=== PATIENT | male | born 1960 | race Caucasian/White ===

== ENCOUNTER 2022-04-14 06:49 | Observation (INO) ==
--- NOTE | 2022-04-14 08:29 | History & Physical Bridge Note ---
Date of Service April 14, 2022 History & Physical Bridge Note I have examined the patient, reviewed the History & Physical and in the interval since the performance of the History & Physical I have noted the following changes of clinical significance: no changes noted
--- NOTE | 2022-04-14 08:31 | Pre Anesthesia Assessment ---
Date of Service April 14, 2022 Pre Sedation Assessment Vital Signs Temp Pulse Resp BP Pulse Ox O2 Del Method 04/14/22 07:18 36.7 C 97 H 16 120/83 98 Room Air Pre-Sedation Airway Assessment Smoking Status: Never smoker Notes The planned sedation has been discussed with the patient. Informed Consent was obtained. I have identified the patient, determined the appropriateness of sedation and have assessed the patient immediately prior to the procedure. All medicine(s) and interventions are by my order.
[2022-04-14] MEDS ORDERED: MIDAZOLAM HCL 1 MG/ML 2ML VIAL ONE (08:54)
[2022-04-14] MEDS ORDERED: fentaNYL citrate 100 MCG/2 ML VIAL ONE (08:54)
--- NOTE | 2022-04-14 09:00 | Post Anesthesia Assessment ---
Date of Service April 14, 2022 Post Sedation Assessment Vital Signs Temp Pulse Resp BP Pulse Ox O2 Del Method 04/14/22 07:18 36.7 C 97 H 16 120/83 98 Room Air Discharge Sedation Level of Care: Fast Track Phase II Post Sedation Plan On clinical assessment, the patient appears to have tolerated the sedation without complications. Patient is recovering as anticipated. Patient will continue to be monitored by nursing and may be discharged when sedation discharge criteria are met per below protocol. Upon Completions of procedure up to 15 minutes continue every 5 minute vital signs and the P.A.R. score; then discharge to a Phase I or Fast Track to Phase II per the following guidelines: * Discharge Patient to appropriate Phase II area if PAR is 8 or greater or return to pre- procedure baseline. The post - procedure orders will be as directed. * If PAR score is less than 8 or not return to pre-procedure baseline then patient will follow Phase I monitoring till PAR is reached for Phase II. The Phase I may be done in procedure room or may call to secure a Phase I area. * If naloxone or flumazenil are used for reversal, hold in Phase I for contin ued monitoring from when last reversal dose was given for a minimum of 60 minutes or longer pending the nurse and/or physician discretion of patient condition before discharge to Phase II. Please call the Sedation Physician to re-evaluate and complete post-note for discharge to Phase II area. Do NOT discharge from procedure sedation or Phase 1 until post- sedation evaluation note is complete by procedure /sedation MD Sedation Discharge Instructions to be given to the patient at discharge to home.
--- NOTE | 2022-04-14 09:03 | Operative Report ---
Post Operative Report Pre & Post Diagnosis Operation Date: 04/14/22 07:45 <No data on this case meets the specified criteria> I identified the patient and participated in the time-out.: Yes Procedure Operation Date: 04/14/22 07:45 Actual Procedures p Cardioversion - Nicholas Kothari DO Surgeon Nicholas Kothari DO Taping Machine Operator Brennon BOOKER Estimated Blood Loss 0 Findings Consistent with Post-Op Diagnosis see above Specimens none Description of Procedure Informed consent obtained. Patient prepped. Adequate moderate sedation achieved with a total of Versed 3 mg and fentanyl 75 mcg 360 J of direct-current energy was delivered with successful cardioversion to normal sinus rhythm. Patient tolerated well. Start time: 0840 Stop time: 0847 Plan Recover per protocol. Discharge to home on previous medication regimen I attest to the content of the Intraoperative Record and any orders documented therein. Any exceptions are noted below.
--- NOTE | 2022-04-14 09:06 | Discharge Summary ---
Date of Service April 14, 2022 Admission HPI Per Admitting Provider Patient presented for outpatient elective cardioversion Admission Exam Per Admitting Provider General: Awake, alert and oriented x 3. No acute distress. HEENT: Normocephalic, atraumatic. Pupils equal, round and reactive to light and accommodation. Extraocular muscles are intact. Anicteric sclera. Moist mucous membranes. Neck: No JVD. No bruit. Cardiovascular: irregularly irregular, unable to appreciate murmur, rub or gallop. Pulmonary: Clear to auscultation bilaterally. No rales, rhonchi, or wheezing. Abdomen: Bowel sounds x 4, soft. No rebound, guarding or tenderness. No organomegaly. Extremities: No clubbing, cyanosis or edema. +2 pedal pulses bilaterally. Skin: Warm and dry. Principal Diagnosis Atrial fibrillation with rapid ventricular response Discharge Exam Physical Exam: General: Awake, alert and oriented x 3. No acute distress. HEENT: Normocephalic, atraumatic. Pupils equal, round and reactive to light and accommodation. Extraocular muscles are intact. Anicteric sclera. Moist mucous membranes. Neck: No JVD. No bruit. Cardiovascular: Regular. No S-4. Normal S-1 and S-2. No S-3. No murmurs, rubs or gallops. Pulmonary: Clear to auscultation bilaterally. No rales, rhonchi, or wheezing. Abdomen: Bowel sounds x 4, soft. No rebound, guarding or tenderness. No organomegaly. Extremities: No clubbing, cyanosis or edema. +2 pedal pulses bilaterally. Skin: Warm and dry. Discharge Data Allergies Allergy/AdvReac Type Severity Reaction Status Date / Time No Known Allergies Allergy Verified 12/28/21 19:35 Procedures Performed Operation Date: 04/14/22 07:45 Actual Procedures p Cardioversion - Nicholas Kothari, Discharge Plan Discharge Items Reason For Visit: Atrial Flutter, Paroxysmal Atrial Fibrillation Follow-Up/Referrals: Villa Stafford [Primary Care Provider] - Prescriptions: No Action multivitamin [Men's Multi-Vitamin] Tablet 1 tab PO DAILY fluticasone propion-salmeterol [Advair Diskus] 250-50 mcg/dose blister with device 1 inh INHALATION DIRECTED Rx Instructions: ORDERED 12/28/21 HAS NOT STARTED YET ascorbic acid (vitamin C) [Vitamin C] 1,000 mg Tablet 1 g PO DAILY cetirizine [Zyrtec] 10 mg Tablet 10 mg PO DAILY ibuprofen 800 mg tablet 800 mg PO TID PRN (Reason: Pain) amlodipine 10 mg tablet 10 mg PO QAM omeprazole 20 mg capsule,delayed release(DR/EC) 20 mg PO BID albuterol sulfate 90 mcg/actuation HFA aerosol inhaler 2 puff INHALATION Q6H PRN (Reason: Shortness Of Breath) fluticasone propionate 50 mcg/actuation spray,suspension 2 spray INTRANASAL DAILY pseudoephedrine HCl [Sudafed] 60 mg Tablet 60 mg PO DAILY Mucinex 1,200 mg Tablet Extended Release 12hr 1,200 mg PO DAILY nebivolol 10 mg tablet 10 mg PO HS calcium lactate 100 mg calcium Tablet 100 mg PO DAILY Magnesium, Zinc, Calcium Tab 1 tab PO DAILY Eliquis 5 mg tablet 5 mg PO BID Qty: 60 0RF metoprolol succinate 25 mg tablet extended release 24 hr 25 mg PO BID Qty: 60 0RF Admission Data Attending Provider: Nicholas Kothari Primary Care Provider: Villa Stafford
--- NOTE | 2022-04-14 09:37 | Cardiology Consultation ---
Date of Consultation April 14, 2022 Assessment & Plan (1) Atrial fibrillation with rapid ventricular response: (2) Hypertension: Plan The patient will be admitted for sotalol loading and reattempt at DC cardioversion. Continuous telemetry monitoring. Basic blood work will be drawn at this time. Daily EKGs. N.p.o. after midnight for possible cardioversion in the a.m. Given patient's body habitus she also undergo nocturnal pulse ox monitoring this evening. History of Present Illness Reason for Consultation: afib sotalol load Requesting Physician: TARA Attending Physician: Nicholas Kothari, History of Present Illness Mr. Bentley is a very pleasant 61-year-old gentleman who is been following with us as an outpatient for paroxysmal atrial fibrillation with rapid ventricular response. He has been chronically anticoagulated with Xarelto and presented for outpatient cardioversion on 04/14/2022. Underwent cardioversion which was initially successful, unfortunately, approximately 5 minutes after the cardioversion he lapsed back into atrial fibrillation. I discussed the pathophysiology and treatment options with him and his and they are in agreement that they would prefer to stay for sotalol loading and repeat cardioversion in an attempt to maintain sinus rhythm. I will ask our hospitalist team to admit him. He will need continuous telemetry monitoring. Daily EKGs to monitor QTC. Metoprolol be discontinued and he will be started on sotalol 80 mg p.o. twice daily instead. Allergies Allergy/AdvReac Type Severity Reaction Status Date / Time No Known Allergies Allergy Verified 12/28/21 19:35 Home Medications Medication Instructions Recorded Confirmed Type Magnesium, Zinc, Calcium Tab 1 tab PO DAILY 12/28/21 12/28/21 History albuterol sulfate 90 mcg/actuation 2 puff inhalation Q6H PRN 12/28/21 12/28/21 History aerosol inhaler Shortness Of Breath amlodipine 10 mg tablet 10 mg PO QAM 12/28/21 12/28/21 History apixaban 5 mg tablet (Eliquis) 5 mg PO BID #60 tabs 12/28/21 Rx ascorbic acid (vitamin C) 1,000 mg 1 g PO DAILY 12/28/21 12/28/21 History tablet (Vitamin C) calcium lactate 100 mg calcium 100 mg PO DAILY 12/28/21 12/28/21 History tablet cetirizine 10 mg tablet (Zyrtec) 10 mg PO DAILY 12/28/21 12/28/21 History fluticasone 250 mcg-salmeterol 50 1 inh inhalation DIRECTED 12/28/21 12/28/21 History mcg/dose blistr powdr for inhalation (Advair Diskus) fluticasone propionate 50 2 spray intranasal DAILY 12/28/21 12/28/21 History mcg/actuation nasal spray,suspension guaifenesin 1,200 mg tablet, 1,200 mg PO DAILY 12/28/21 12/28/21 History extended release 12 hr (Mucinex) ibuprofen 800 mg tablet 800 mg PO TID PRN Pain 12/28/21 12/28/21 History metoprolol succinate 25 mg 25 mg PO BID #60 tabs 12/28/21 Rx tablet,extended release 24 hr multivitamin 1 tab PO DAILY 12/28/21 12/28/21 History nebivolol 10 mg tablet 10 mg PO HS 12/28/21 12/28/21 History omeprazole 20 mg capsule,delayed 20 mg PO BID 12/28/21 12/28/21 History release pseudoephedrine HCl 60 mg tablet 60 mg PO DAILY 12/28/21 12/28/21 History Patient History Social History Smoking Status: Never smoker Hx Alcohol Use: No Hx Substance Use: No Preferred Language: [place]ese Communication Ability: Effective Linoleum Tile Floor Layer Required: No Beliefs That Will Affect Care: None Current Living Situation: Spouse Other Information That Helps Us Care for You: No Feels Safe at Home: Yes Safety Concerns: Feels Safe At This Time Assistive Devices: None Review of Systems Review of Systems: All systems reviewed & are unremarkable except as noted in HPI & below Physical Exam Physical Exam: General: Awake, alert and oriented x 3. No acute distress. HEENT: Normocephalic, atraumatic. Pupils equal, round and reactive to light and accommodation. Extraocular muscles are intact. Anicteric sclera. Moist mucous membranes. Neck: No JVD. No bruit. Cardiovascular: irregularly irregular, unable to appreciate murmur, rub or gallop. Pulmonary: Clear to auscultation bilaterally. No rales, rhonchi, or wheezing. Abdomen: Bowel sounds x 4, soft. No rebound, guarding or tenderness. No organomegaly. Extremities: No clubbing, cyanosis or edema. +2 pedal pulses bilaterally. Skin: Warm and dry. Results & Data ([facility]) Vital Signs (Past 12 Hours) Vital Signs Temp Pulse Resp BP Pulse Ox O2 Del Method 04/14/22 09:30 94 H 16 125/93 98 Room Air 04/14/22 09:15 87 16 110/73 98 Room Air 04/14/22 09:00 85 16 114/76 98 Room Air 04/14/22 08:48 90 16 132/87 98 Room Air 04/14/22 07:18 36.7 C 97 H 16 120/83 98 Room Air
--- NOTE | 2022-04-14 09:41 | Electrocardiogram Report ---
Test Reason : Blood Pressure : / mmHG Vent. Rate : 080 BPM Atrial Rate : 000 BPM P-R Int : 000 ms QRS Dur : 100 ms QT Int : 394 ms P-R-T Axes : 000 179 188 degrees QTc Int : 454 ms Atrial fibrillation Right axis deviation Abnormal ECG When compared with ECG of 28-DEC-2021 18:29, No significant change Confirmed by Justin Boss ([id number]) on 04/14/2022 9:40:57 AM Referred By: Itzel Duff Confirmed By:Justin Boss
--- NOTE | 2022-04-14 09:49 | History & Physical Report ---
Date of Service April 14, 2022 Assessment & Plan (1) Atrial fibrillation with rapid ventricular response: Plan: This is a 61yo M with a PMH of recently diagnosed paroxysmal A Fib on Xarelto, HTN who underwent unsuccessful cardioversion for atrial fibrillation and is b eing admitted for Sotalol loading. Underwent cardioversion which was initially successful but approximately 5 minutes after the cardioversion he lapsed back into atrial fibrillation Admitting for Sotalol loading and repeat cardioversion Sotalol 80mg BID per Dr. Kothari Discontinue Toprol Daily ECGs NPO @ MN for possible cardioversion in AM Nocturnal pulse ox monitoring overnight given body habitus Continue Xarelto for anticoagulation (2) Hypertension: Plan: Normotensive. Continue amlodipine (3) Gastroesophageal reflux disease: Plan: Continue PPI DVT Ppx: Xarelto Code status: FULL PCP: Rivera Dispo: Admitting to PCU Patient seen in collaboration with Dr. Gamboa. Please see addendum. History of Present Illness Chief Complaint: a fib Primary Care Provider: Villa Stafford This is a 61yo M with a PMH of recently diagnosed paroxysmal A Fib on Xarelto, HTN who presented for DC cardioversion with Dr. Kothari. Underwent cardioversion which was initially successful but approximately 5 minutes after the cardioversion he lapsed back into atrial fibrillation. Patient is being admitted for sotalol loading and repeat cardioversion. Echo from February 2022 with preserved EF 50-54%, no wall motion abnormalities. Patient is feeling well when examined in cardiac suite. Denies any lightheadedness, chest pain or palpitations. No fever, chills, congestion,shortness of breath, nausea, vomiting, abdominal pain, dysuria, diarrhea or constipation. Taking all medications as prescribed. Last took Xarelto last evening with dinner. Follows with Dr. Stafford for primary care. Allergies Allergy/AdvReac Type Severity Reaction Status Date / Time No Known Allergies Allergy Verified 12/28/21 19:35 Home Medications Medication Instructions Recorded Confirmed Type Magnesium, Zinc, Calcium Tab 1 tab PO DAILY 12/28/21 04/14/22 History albuterol sulfate 90 mcg/actuation 2 puff inhalation Q6H PRN 12/28/21 04/14/22 History aerosol inhaler Shortness Of Breath amlodipine 10 mg tablet 10 mg PO QAM 12/28/21 04/14/22 History calcium lactate 100 mg calcium 100 mg PO DAILY 12/28/21 04/14/22 History tablet cetirizine 10 mg tablet (Zyrtec) 10 mg PO DAILY 12/28/21 04/14/22 History fluticasone 250 mcg-salmeterol 50 1 inh inhalation DIRECTED 12/28/21 04/14/22 History mcg/dose blistr powdr for inhalation (Advair Diskus) fluticasone propionate 50 2 spray intranasal DAILY 12/28/21 04/14/22 History mcg/actuation nasal spray,suspension guaifenesin 1,200 mg tablet, 1,200 mg PO DAILY 12/28/21 04/14/22 History extended release 12 hr (Mucinex) ibuprofen 800 mg tablet 800 mg PO TID PRN Pain 12/28/21 04/14/22 History multivitamin 1 tab PO DAILY 12/28/21 04/14/22 History omeprazole 20 mg capsule,delayed 20 mg PO BID 12/28/21 04/14/22 History release ascorbic acid (vitamin C) 100 mg 100 mg PO DAILY 04/14/22 04/14/22 History tablet metoprolol succinate 100 mg 100 mg PO DAILY 04/14/22 04/14/22 History tablet,extended release 24 hr rivaroxaban 20 mg tablet (Xarelto) 20 mg PO DAILY@1800 04/14/22 04/14/22 History Past Med/Surg History Medical History (Updated 04/14/22 @ 11:24 by Rosana Sanchez PA-C) Gastroesophageal reflux disease Hyperlipidemia Lyme disease Migraine headache Obesity Thyroid nodule Surgical History H/O hand surgery Family History Other Hypertension Social History Smoking Status: Former smoker Hx Alcohol Use: No Hx Substance Use: No Preferred Language: [place] Communication Ability: Effective Compensator Worker Required: No Beliefs That Will Affect Care: None Current Living Situation: Spouse Other Information That Helps Us Care for You: No Feels Safe at Home: Yes Safety Concerns: Feels Safe At This Time Assistive Devices: None Review of Systems Review of Systems: At least ten systems reviewed and negative except as noted in the HPI. Physical Exam Physical Exam: General Appearance: WD/WN, vitals as above, NAD, sitting up in bed, pleasant, conversing easily Head: normocephalic, atraumatic Eyes: normal inspection, PERRL, conjunctivae normal, anicteric sclerae ENT: external ear and nose normal, oropharynx normal Neck: normal visual inspection, trachea midline, no thyromegaly Respiratory: normal respiratory effort, lungs clear to auscultation, no wheeze, rales, rhonchi. No accessory muscle use Cardiovascular: irregular rate & rhythm, no murmur, normal peripheral pulses, no BLE edema. Vessels: no JVD Chest: normal inspection of chest Abdomen/GI: normal bowel sounds, soft, nontender, no hepatosplenomegaly Extremities/Musculoskeletal: no cyanosis or clubbing, extremities motor strength 5/5 Neurologic: PERRL, EOMI, accommodation nl, no face palsy, no dysarthria, CN's II-XI intact bilaterally and moves all extremities Psychiatric: A+Ox3, euthymic affect Skin: no rashes, normal color, warm/dry Results & Data Results & Data ([facility]) Vital Signs (Past 12 Hours) Vital Signs Temp Pulse Resp BP Pulse Ox O2 Del Method 04/14/22 09:45 92 H 16 127/93 98 Room Air 04/14/22 09:30 94 H 16 125/93 98 Room Air 04/14/22 09:15 87 16 110/73 98 Room Air 04/14/22 09:00 85 16 114/76 98 Room Air 04/14/22 08:48 90 16 132/87 98 Room Air 04/14/22 07:18 36.7 C 97 H 16 120/83 98 Room Air Code Status & VTE Plan VTE Prophylaxis Plan VTE Prophylaxis will be ordered: Yes Supervising Physician Co-Signing Physician Notes Patient was seen and examined independently at bedside. Chart reviewed. Case discussed with Rosana Sanchez PA-C and agree with the documentation above. In summary, this is a 61 year old male with Afib with RVR who underwent unsuccessful cardioversion today and is being admitted for sotalol loading with plan for repeat CV tomorrow. States he was found to have Afib on 12/28/21 and has been tried on medications but did not covert to NSR. Has been on xarelto since. Currently denies any symptoms from his Afib. This is his first cardioversion but unsuccessful. Per cardio, toprol discontinued as started on sotalol, monitor on tele, repeat CV in am. Further management per cardio. On exam, afebrile, hemodynamically stable, sitting in chair, eating lunch, AAO, chest clear, irregularly irregular HR, abd benign, no edema. at bedside. Rest as per the note above.
[2022-04-14] MEDS ORDERED: guaiFENesin 600 MG TABCR PO PRN (10:17)
[2022-04-14] MEDS ORDERED: IBUPROFEN 800 MG TAB PO PRN (10:17)
[2022-04-14] MEDS ORDERED: POLYETHYLENE (MIRALAX) 17 GM PACK PO PRN (11:46)
[2022-04-14] MEDS ORDERED: ACETAMINOPHEN 325 MG TAB PO PRN (11:46)
[2022-04-14] MEDS ORDERED: ALBUTEROL HFA 8 GM INHALER INH PRN (11:59)
[2022-04-14] MEDS: SOTALOL HCL 80 MG TAB PO SCH ×2 (13:11→20:01)
[2022-04-14] MEDS: RIVAROXABAN 20 MG TAB PO SCH (17:48)
[2022-04-14] MEDS: PANTOprazole 40 MG TAB PO SCH (20:01)
[2022-04-15 07:55] LABS: Hematocrit (blood only) 48.6 % (40.1-51.0); Hemoglobin 16.9 g/dl (14.0-18.0); Mean Corpuscular Hgb Conc 34.8 g/dL (32.0-36.0); Mean Platelet Volume 11.5 fL (9.4-12.4); Platelet Count 189 K/uL (130-400); RDW Coefficient of Variation 12.1 % (11.5-14.5); RDW Standard Deviation 39.3 fL (36.4-46.3); Red Blood Count 5.46 M/uL (4.63-6.08); White Blood Count 9.46 K/ul (4.8-10.8)
[2022-04-15 08:18] LABS: BUN Creatinine Ratio 22.6 (10-20); Calcium 8.8 mg/dl (8.5-10.1); Creatinine Clr Calc Pharmacy 111.2 ml/min; Est GFR (African American) 103.8 ml/min; Est GFR (Non-African American) 89.5 ml/min
[2022-04-15] MEDS ORDERED: CALCIUM PO SCH (09:00)
[2022-04-15] MEDS ORDERED: MAGNESIUM PO SCH (09:00)
[2022-04-15] MEDS ORDERED: ZINC PO SCH (09:00)
[2022-04-15] MEDS: SOTALOL HCL 80 MG TAB PO SCH ×2 (09:07→20:34)
[2022-04-15] MEDS: amLODIPine BESYLATE 5 MG TAB PO SCH (09:07)
[2022-04-15] MEDS: PANTOprazole 40 MG TAB PO SCH ×2 (09:07→20:34)
[2022-04-15] MEDS: ASCORBIC ACID 500 MG TAB PO SCH (09:07)
[2022-04-15] MEDS: CETIRIZINE HCL 10 MG TABLET PO SCH (09:07)
[2022-04-15] MEDS: CALCIUM CITRATE 950 MG TAB PO SCH (09:07)
[2022-04-15] MEDS: MULTIVITAMIN TAB PO SCH (09:07)
[2022-04-15] MEDS: FLUTICASONE/VILANTEROL 200/25MCG 14 PUFFS/INHALER INH SCH (09:08)
[2022-04-15] MEDS: FLUTICASONE PROPIONATE NA SPR 16 GM BTL NAE SCH (09:08)
[2022-04-15] MEDS ORDERED: MIDAZOLAM HCL 1 MG/ML 2ML VIAL ONE (13:11)
[2022-04-15] MEDS ORDERED: fentaNYL citrate 100 MCG/2 ML VIAL ONE ×2 (13:11→13:13)
[2022-04-15] MEDS ORDERED: MIDAZOLAM HCL 5 MG/ML 1 ML VIAL ONE (13:11)
--- NOTE | 2022-04-15 13:37 | Pre Anesthesia Assessment ---
Date of Service April 15, 2022 Pre Sedation Assessment Vital Signs Temp Pulse Pulse Pulse Pulse Resp BP 04/15/22 12:10 37.0 C 85 16 131/90 04/15/22 09:00 80 04/15/22 08:49 37.0 C 79 18 144/85 H 04/15/22 04:20 77 77 04/15/22 02:44 36.8 C 74 18 142/88 H 04/14/22 22:30 80 04/15/22 00:02 77 77 04/14/22 22:55 36.8 C 67 18 117/78 04/14/22 19:23 37.0 C 89 20 132/89 04/14/22 15:23 36.7 C 84 20 122/79 Pulse Ox Pulse Ox Pulse Ox O2 Del Method O2 Del Method O2 Del Method FiO2 04/15/22 12:10 97 Room Air 04/15/22 09:00 04/15/22 08:49 98 Room Air 04/15/22 04:20 96 96 Room Air Room Air 21 04/15/22 02:44 97 Room Air 04/14/22 22:30 04/15/22 00:02 96 96 Room Air 21 04/14/22 22:55 96 Room Air 04/14/22 19:23 97 Room Air 04/14/22 15:23 97 Room Air FiO2 04/15/22 12:10 04/15/22 09:00 04/15/22 08:49 04/15/22 04:20 21 04/15/22 02:44 04/14/22 22:30 04/15/22 00:02 21 04/14/22 22:55 04/14/22 19:23 04/14/22 15:23 Pre-Sedation Airway Assessment Smoking Status: Former smoker Notes The planned sedation has been discussed with the patient. Informed Consent was obtained. I have identified the patient, determined the appropriateness of sedation and have assessed the patient immediately prior to the procedure. All medicine(s) and interventions are by my order.
--- NOTE | 2022-04-15 13:50 | Post Anesthesia Assessment ---
Date of Service April 15, 2022 Post Sedation Assessment Vital Signs Temp Pulse Pulse Pulse Pulse Resp BP 04/15/22 13:47 61 20 140/87 04/15/22 13:43 92 H 20 158/99 H 04/15/22 12:10 37.0 C 85 16 131/90 04/15/22 09:00 80 04/15/22 08:49 37.0 C 79 18 144/85 H 04/15/22 04:20 77 77 04/15/22 02:44 36.8 C 74 18 142/88 H 04/14/22 22:30 80 04/15/22 00:02 77 77 04/14/22 22:55 36.8 C 67 18 117/78 04/14/22 19:23 37.0 C 89 20 132/89 04/14/22 15:23 36.7 C 84 20 122/79 Pulse Ox Pulse Ox Pulse Ox O2 Del Method O2 Del Method O2 Del Method O2 Flow Rate 04/15/22 13:47 98 Nasal Cannula 3 04/15/22 13:43 99 Nasal Cannula 3 04/15/22 12:10 97 Room Air 04/15/22 09:00 04/15/22 08:49 98 Room Air 04/15/22 04:20 96 96 Room Air Room Air 04/15/22 02:44 97 Room Air 04/14/22 22:30 04/15/22 00:02 96 96 Room Air 04/14/22 22:55 96 Room Air 04/14/22 19:23 97 Room Air 04/14/22 15:23 97 Room Air FiO2 FiO2 04/15/22 13:47 04/15/22 13:43 04/15/22 12:10 04/15/22 09:00 04/15/22 08:49 04/15/22 04:20 21 21 04/15/22 02:44 04/14/22 22:30 04/15/22 00:02 21 21 04/14/22 22:55 04/14/22 19:23 04/14/22 15:23 Recovery Score Activity: Moves 4 extremities Respiration: Deep Breath/Cough Circulation: +/-20% PreAnes Value Consciousness: Fully Awake Oxygen Saturation: > 92% On Room Air Post Anesthesia Score: 10 Discharge Sedation Level of Care: Fast Track Phase II Post Sedation Plan On clinical assessment, the patient appears to have tolerated the sedation without complications. Patient is recovering as anticipated. Patient will continue to be monitored by nursing and may be discharged when sedation discharge criteria are met per below protocol. Upon Completions of procedure up to 15 minutes continue every 5 minute vital signs and the P.A.R. score; then discharge to a Phase I or Fast Track to Phase II per the following guidelines: * Discharge Patient to appropriate Phase II area if PAR is 8 or greater or return to pre- procedure baseline. The post - procedure orders will be as directed. * If PAR score is less than 8 or not return to pre-procedure baseline then patient will follow Phase I monitoring till PAR is reached for Phase II. The Phase I may be done in procedure room or may call to secure a Phase I area. * If naloxone or flumazenil are used for reversal, hold in Phase I for continued monitoring from when last reversal dose was given for a minimum of 60 minutes or longer pending the nurse and/or physician discretion of patient condition before discharge to Phase II. Please call the Sedation Physician to re-evaluate and complete post-note for discharge to Phase II area. Do NOT discharge from procedure sedation or Phase 1 until post- sedation evaluation note is complete by procedure /sedation MD Sedation Discharge Instructions to be given to the patient at discharge to home.
--- NOTE | 2022-04-15 13:52 | Cardioversion ---
Date of Service April 15, 2022 Electrical Cardioversion Rpt Electrical Cardioversion Report Informed consent obtained. Patient prepped. Adequate moderate sedation achieved with a total of 1 mg Versed and 50 mcg of fentanyl 3 and 60 J of direct-current energy delivered with successful cardioversion to normal sinus rhythm. Patient tolerated procedure well. Recover per protocol. Start time: 1343 Stop time 1348 Plan Return to telemetry to complete sotalol load
--- NOTE | 2022-04-15 14:01 | Cardiology Progress Note ---
Date of Service April 15, 2022 Assessment & Plan (1) Atrial fibrillation with rapid ventricular response: (2) Hypertension: Plan The patient will be admitted for sotalol loading and reattempt at DC cardioversion. Repeat cardioversion today was successful in maintaining sinus rhythm. Continue telemetry monitoring for ventricular arrhythmias until sotalol load is completed Daily EKGs to monitor QTC. Nocturnal pulse ox negative for desaturations Admission and Anticipated Discharge Date Admission Date: April 14, 2022 Subjective Patient seen and examined, chart reviewed. No events overnight. Continues to remain symptom-free. Telemetry reviewed: Atrial fibrillation rate controlled without significant arrhythmias or ectopy Review of Systems Review of Systems: All systems reviewed & are unremarkable except as noted in HPI & below Physical Exam Physical Exam: General: Awake, alert and oriented x 3. No acute distress. HEENT: Normocephalic, atraumatic. Pupils equal, round and reactive to light and accommodation. Extraocular muscles are intact. Anicteric sclera. Moist mucous membranes. Neck: No JVD. No bruit. Cardiovascular: irregularly irregular, unable to appreciate murmur, rub or gallop. Pulmonary: Clear to auscultation bilaterally. No rales, rhonchi, or wheezing. Abdomen: Bowel sounds x 4, soft. No rebound, guarding or tenderness. No organomegaly. Extremities: No clubbing, cyanosis or edema. +2 pedal pulses bilaterally. Skin: Warm and dry. Results & Data ([facility]) Vital Signs (Past 12 Hours) Vital Signs Temp Pulse Pulse Pulse Pulse Resp BP 04/15/22 13:48 55 L 20 145/88 H 04/15/22 13:47 61 20 140/87 04/15/22 13:43 92 H 20 158/99 H 04/15/22 12:10 37.0 C 85 16 131/90 04/15/22 09:00 80 04/15/22 08:49 37.0 C 79 18 144/85 H 04/15/22 04:20 77 77 04/15/22 02:44 36.8 C 74 18 142/88 H Pulse Ox Pulse Ox Pulse Ox O2 Del Method O2 Del Method O2 Del Method O2 Flow Rate 04/15/22 13:48 100 Room Air 04/15/22 13:47 98 Nasal Cannula 3 04/15/22 13:43 99 Nasal Cannula 3 04/15/22 12:10 97 Room Air 07/29/22 09:00 04/15/22 08:49 98 Room Air 04/15/22 04:20 96 96 Room Air Room Air 04/15/22 02:44 97 Room Air FiO2 FiO2 04/15/22 13:48 04/15/22 13:47 04/15/22 13:43 04/15/22 12:10 04/15/22 09:00 04/15/22 08:49 04/15/22 04:20 21 21 04/15/22 02:44
--- NOTE | 2022-04-15 15:50 | Hospitalist Progress Note ---
Date of Service April 15, 2022 Assessment & Plan (1) Atrial fibrillation with rapid ventricular response: Plan: This is a 61yo M with a PMH of recently diagnosed paroxysmal A Fib on Xarelto, HTN who underwent unsuccessful cardioversion for atrial fibrillation and is b eing admitted for Sotalol loading. Underwent cardioversion which was initially successful but approximately 5 minutes after the cardioversion he lapsed back into atrial fibrillation Admitting for Sotalol loading and repeat cardioversion Sotalol 80mg BID per Dr. Kothari Discontinue Toprol Continue Xarelto for anticoagulation Remained stable on sotalol Pulse oximetrys are unremarkable Status post repeat cardioversion and reversion to sinus rhythm Asymptomatic and will continue current management (2) Hypertension: Plan: Normotensive. Continue amlodipine Blood pressure remains stable (3) Gastroesophageal reflux disease: Plan: Continue PPI DVT Ppx: Xarelto Code status: FULL PCP: Rivera Dispo: Admitting to PCU Admission and Anticipated Discharge Date Admission Date: April 14, 2022 Subjective 04/15/2022 The patient was seen and examined in telemetry unit He has been feeling much better and denies any palpitation and/or shortness of breath No chest pain as well Still has atrial flutter but the rate is controlled Review of Systems Review of Systems: All systems reviewed and are unremarkable except as noted below Physical Exam Physical Exam: Sitting on a chair without any acute distress Constitutional: well developed, well nourished and + obese; not ill appearing Eyes: PERRL, conjunctivae normal, anicteric sclerae ENMT: external ear and nose normal, oropharynx normal Neck: trachea midline, no thyromegaly Respiratory: no respiratory distress Auscultation: lungs clear to auscultation bilaterally Cardiovascular: Rate/Rhythm: not tachycardic and not irregularly irregular Heart Sounds: normal S1 and normal S2; no murmur Extremities: no edema Gastrointestinal (Abdomen): Inspection/Auscultation: normal bowel sounds; abdomen not distended Percussion/Palpation: abdomen soft; abdomen nontender Musculoskeletal: No acute arthritis in any joint Neurologic: CN's II-XI intact bilaterally and moves all extremities Psychiatric: A+Ox3, euthymic affect Lymphatic: no cervical or axillary lymphadenopathy Results & Data Results & Data ([facility]) Vital Signs (Past 12 Hours) Vital Signs Temp Pulse Pulse Pulse Pulse Resp BP 04/15/22 15:05 36.6 C 58 L 18 114/74 04/15/22 14:50 36.5 C 59 L 18 117/77 04/15/22 14:35 36.5 C 60 20 121/79 04/15/22 14:20 36.5 C 65 20 138/86 04/15/22 14:03 58 L 20 103/70 04/15/22 13:48 55 L 20 145/88 H 04/15/22 13:47 61 20 140/87 04/15/22 13:43 92 H 20 158/99 H 04/15/22 12:10 37.0 C 85 16 131/90 04/15/22 09:00 80 04/15/22 08:49 37.0 C 79 18 144/85 H 04/15/22 04:20 77 77 Pulse Ox Pulse Ox Pulse Ox O2 Del Method O2 Del Method O2 Del Method O2 Flow Rate 04/15/22 15:05 95 Room Air 04/15/22 14:50 94 Room Air 04/15/22 14:35 95 Room Air 04/15/22 14:20 97 Room Air 04/15/22 14:03 100 Room Air 04/15/22 13:48 100 Room Air 04/15/22 13:47 98 Nasal Cannula 3 04/15/22 13:43 99 Nasal Cannula 3 04/15/22 12:10 97 Room Air 04/15/22 09:00 04/15/22 08:49 98 Room Air 04/15/22 04:20 96 96 Room Air Room Air FiO2 FiO2 04/15/22 15:05 04/15/22 14:50 04/15/22 14:35 04/15/22 14:20 04/15/22 14:03 04/15/22 13:48 04/15/22 13:47 04/15/22 13:43 04/15/22 12:10 04/15/22 09:00 04/15/22 08:49 04/15/22 04:20 21 21 Laboratory Results Short CBC 04/15/22 Range/Units 07:01 WBC 9.46 (4.8-10.8) K/ul Hgb 16.9 (14.0-18.0) g/dl Hct 48.6 (40.1-51.0) % Plt Count 189 (130-400) K/uL BMP 04/15/22 07:01 Sodium 139 Potassium 4.0 Chloride 106 Carbon Dioxide 27 BUN 21 Creatinine 0.93 Glucose 101 H Calcium 8.8 Medications Administered Current Inpatient Medications Acetaminophen (Acetaminophen 325 Mg Tab) 650 mg PO Q4H PRN PRN Reason: Pain or Fever Stop: 05/14/22 11:45 Albuterol (Albuterol Hfa 8 Gm Inhaler) 2 puffs INH Q6R PRN PRN Reason: Shortness Of Breath Stop: 05/14/22 11:58 Amlodipine Besylate (Amlodipine Besylate 5 Mg Tab) 10 mg PO QAM JASPAL Stop: 05/15/22 08:59 Last Admin: 04/15/22 09:07 Dose: 10 mg Ascorbic Acid (Ascorbic Acid 500 Mg Tab) 500 mg PO DAILY JASPAL Stop: 05/15/22 08:59 Last Admin: 04/15/22 09:07 Dose: 500 mg Calcium Citrate (Calcium Citrate 950 Mg Tab) 950 mg PO DAILY JASPAL Stop: 05/15/22 08:59 Last Admin: 04/15/22 09:07 Dose: 950 mg Cetirizine HCl (Cetirizine Hcl 10 Mg Tablet) 10 mg PO DAILY JASPAL Stop: 05/15/22 08:59 Last Admin: 04/15/22 09:07 Dose: 10 mg Fluticasone Propionate (Fluticasone Propionate Na Spr 16 Gm Btl) 2 sprays AMY DAILY JASPAL Stop: 05/15/22 08:59 Last Admin: 04/15/22 09:08 Dose: 2 sprays Fluticasone/Vilanterol (Fluticasone/Vilanterol 200/25mcg 14 Puffs/Inhaler) 1 puffs INH DAILY JASPAL; Protocol Stop: 05/15/22 08:59 Last Admin: 04/15/22 09:08 Dose: 1 puffs Guaifenesin (Guaifenesin 600 Mg Tabcr) 1,200 mg PO DAILY PRN PRN Reason: Congestion Stop: 05/15/22 08:59 Ibuprofen (Ibuprofen 800 Mg Tab) 800 mg PO TID PRN PRN Reason: Pain Stop: 05/14/22 10:16 Multivitamins (Multivitamin Tab) 1 tab PO DAILY JASPAL Stop: 05/15/22 08:59 Last Admin: 04/15/22 09:07 Dose: 1 tab Pantoprazole Sodium (Pantoprazole 40 Mg Tab) 40 mg PO BID [facility]; Protocol Stop: 05/14/22 20:59 Last Admin: 04/15/22 09:07 Dose: 40 mg Polyethylene Glycol (Polyethylene (Miralax) 17 Gm Pack) 17 gm PO DAILY PRN PRN Reason: Constipation Stop: 05/14/22 11:45 Rivaroxaban (Rivaroxaban 20 Mg Tab) 20 mg PO DAILY@1800 [facility] Stop: 05/14/22 17:59 Last Admin: 04/14/22 17:48 Dose: 20 mg Sotalol HCl (Sotalol Hcl 80 Mg Tab) 80 mg PO BID [facility] Stop: 05/14/22 11:59 Last Admin: 04/15/22 09:07 Dose: 80 mg
[2022-04-15] MEDS: RIVAROXABAN 20 MG TAB PO SCH (17:44)
--- NOTE | 2022-04-15 21:16 | Electrocardiogram Report ---
Test Reason : Blood Pressure : / mmHG Vent. Rate : 081 BPM Atrial Rate : 086 BPM P-R Int : 000 ms QRS Dur : 094 ms QT Int : 400 ms P-R-T Axes : 000 049 024 degrees QTc Int : 464 ms Atrial fibrillation Abnormal ECG When compared with ECG of 14-APR-2022 08:48, QRS axis Shifted left Prior tracing has arm lead reversal Confirmed by Amari Tadeo ([id number]) on 04/15/2022 9:16:19 PM Referred By: Itzel Duff Confirmed By:Amari Tadeo
--- NOTE | 2022-04-15 21:32 | Electrocardiogram Report ---
Test Reason : Blood Pressure : / mmHG Vent. Rate : 056 BPM Atrial Rate : 056 BPM P-R Int : 194 ms QRS Dur : 100 ms QT Int : 482 ms P-R-T Axes : 069 043 043 degrees QTc Int : 465 ms Sinus bradycardia Otherwise normal ECG When compared with ECG of 15-APR-2022 06:14, (unconfirmed) Sinus rhythm has replaced Atrial fibrillation Confirmed by Amari Tadeo ([id number]) on 04/15/2022 9:32:01 PM Referred By: Itzel Duff Confirmed By:Amari Tadeo
[2022-04-16 06:59] LABS: BUN Creatinine Ratio 21.8 (10-20); Calcium 8.9 mg/dl (8.5-10.1); Creatinine Clr Calc Pharmacy 100.5 ml/min; Est GFR (African American) 93.9 ml/min; Potassium 4.1 mmol/L (3.5-5.1)
[2022-04-16 07:23] LABS: Hematocrit (blood only) 47.5 % (40.1-51.0); Mean Corpuscular Hemoglobin 30.4 pg (25.0-34.0); Mean Corpuscular Hgb Conc 33.7 g/dL (32.0-36.0); Mean Corpuscular Volume 90.3 fL (80.0-100.0); Mean Platelet Volume 11.8 fL (9.4-12.4); Platelet Count 174 K/uL (130-400); RDW Coefficient of Variation 12.1 % (11.5-14.5); Red Blood Count 5.26 M/uL (4.63-6.08)
[2022-04-16] MEDS: FLUTICASONE/VILANTEROL 200/25MCG 14 PUFFS/INHALER INH SCH (08:59)
[2022-04-16] MEDS: FLUTICASONE PROPIONATE NA SPR 16 GM BTL NAE SCH (09:00)
[2022-04-16] MEDS: MULTIVITAMIN TAB PO SCH (09:01)
[2022-04-16] MEDS: ASCORBIC ACID 500 MG TAB PO SCH (09:01)
[2022-04-16] MEDS: CETIRIZINE HCL 10 MG TABLET PO SCH (09:01)
[2022-04-16] MEDS: PANTOprazole 40 MG TAB PO SCH (09:01)
[2022-04-16] MEDS: SOTALOL HCL 80 MG TAB PO SCH (09:01)
[2022-04-16] MEDS: CALCIUM CITRATE 950 MG TAB PO SCH (09:02)
[2022-04-16] MEDS: amLODIPine BESYLATE 5 MG TAB PO SCH (09:02)
--- NOTE | 2022-04-16 09:30 | Cardiology Progress Note ---
Date of Service April 16, 2022 Assessment & Plan (1) Atrial fibrillation with rapid ventricular response: (2) Hypertension: Plan The patient is maintaining sinus rhythm. He is tolerating his medications including the sotalol. I think the patient should be ready to go home this afte rnoon. We will arrange follow-up through our clinic. Admission and Anticipated Discharge Date Admission Date: April 14, 2022 Subjective The patient had an uneventful night. He is anxious to go home. Review of Systems Review of Systems: Review of Systems: See HPI for pertinent positives. All other 10 point review of systems are negative. Physical Exam Physical Exam: General: no acute distress and stated age Head: normocephalic, no masses, lesions, tenderness or abnormalities Eyes: conjunctiva are pink and non-injected, sclera clear Neck: supple, no adenopathy, no bruits, normal jugular venous pulse, no hepatojugular reflux Chest: normal shape and normal respiratory effort Lungs: clear to auscultation and percussion Cardiac Exam: - regular rate & rhythm, no murmurs gallops or rubs - normal S1, normal S2 Pulses: 2(+) throughout Abdomen: abdomen soft, non-tender, no abnormal masses and no hepatosplenomegaly Musculoskeletal: no gait disturbance, no joint inflammation, no deforming arthritis Extremities: no edema and no cyanosis Neuro: grossly normal exam Results & Data ([facility]) Vital Signs (Past 12 Hours) Vital Signs Temp Pulse Pulse Resp BP Pulse Ox O2 Del Method 04/16/22 07:25 36.4 C L 63 19 150/89 H 97 Room Air 04/16/22 03:30 36.9 C 60 18 135/84 96 Room Air 04/15/22 22:30 59 L 04/15/22 23:14 36.5 C 62 16 120/79 97 Room Air Laboratory Results Laboratory Results - last 24 hr 04/16/22 04/16/22 05:28 05:28 WBC 8.80 RBC 5.26 Hgb 16.0 Hct 47.5 MCV 90.3 MCH 30.4 MCHC 33.7 RDW Std Deviation 40.0 RDW Coeff of Samira 12.1 Plt Count 174 MPV 11.8 Sodium 138 Potassium 4.1 Chloride 103 Carbon Dioxide 30 Anion Gap 5 BUN 22 Creatinine 1.01 Est Cr Clr Drug Dosing 100.5 Est GFR ( Amer) 93.9 Est GFR (Non-Af Amer) 81.0 BUN/Creatinine Ratio 21.8 H Glucose 95 Calcium 8.9 Magnesium 2.0 Medications Administered Current Inpatient Medications Acetaminophen (Acetaminophen 325 Mg Tab) 650 mg PO Q4H PRN PRN Reason: Pain or Fever Stop: 05/14/22 11:45 Albuterol (Albuterol Hfa 8 Gm Inhaler) 2 puffs INH Q6R PRN PRN Reason: Shortness Of Breath Stop: 05/14/22 11:58 Amlodipine Besylate (Amlodipine Besylate 5 Mg Tab) 10 mg PO QAM JASPAL Stop: 05/15/22 08:59 Last Admin: 04/16/22 09:02 Dose: 10 mg Ascorbic Acid (Ascorbic Acid 500 Mg Tab) 500 mg PO DAILY [facility] Stop: 05/15/22 08:59 Last Admin: 04/16/22 09:01 Dose: 500 mg Calcium Citrate (Calcium Citrate 950 Mg Tab) 950 mg PO DAILY JASPAL Stop: 05/15/22 08:59 Last Admin: 04/16/22 09:02 Dose: 950 mg Cetirizine HCl (Cetirizine Hcl 10 Mg Tablet) 10 mg PO DAILY [facility] Stop: 05/15/22 08:59 Last Admin: 04/16/22 09:01 Dose: 10 mg Fluticasone Propionate (Fluticasone Propionate Na Spr 16 Gm Btl) 2 sprays AMY DAILY [facility] Stop: 05/15/22 08:59 Last Admin: 04/16/22 09:00 Dose: 2 sprays Fluticasone/Vilanterol (Fluticasone/Vilanterol 200/25mcg 14 Puffs/Inhaler) 1 puffs INH DAILY JASPAL; Protocol Stop: 05/15/22 08:59 Last Admin: 04/16/22 08:59 Dose: 1 puffs Guaifenesin (Guaifenesin 600 Mg Tabcr) 1,200 mg PO DAILY PRN PRN Reason: Congestion Stop: 05/15/22 08:59 Ibuprofen (Ibuprofen 800 Mg Tab) 800 mg PO TID PRN PRN Reason: Pain Stop: 05/14/22 10:16 Multivitamins (Multivitamin Tab) 1 tab PO DAILY JASPAL Stop: 05/15/22 08:59 Last Admin: 04/16/22 09:01 Dose: 1 tab Pantoprazole Sodium (Pantoprazole 40 Mg Tab) 40 mg PO BID [facility]; Protocol Stop: 05/14/22 20:59 Last Admin: 04/16/22 09:01 Dose: 40 mg Polyethylene Glycol (Polyethylene (Miralax) 17 Gm Pack) 17 gm PO DAILY PRN PRN Reason: Constipation Stop: 05/14/22 11:45 Rivaroxaban (Rivaroxaban 20 Mg Tab) 20 mg PO DAILY@1800 [facility] Stop: 05/14/22 17:59 Last Admin: 04/15/22 17:44 Dose: 20 mg Sotalol HCl (Sotalol Hcl 80 Mg Tab) 80 mg PO BID [facility] Stop: 05/14/22 11:59 Last Admin: 04/16/22 09:01 Dose: 80 mg
--- NOTE | 2022-04-16 12:08 | Discharge Summary ---
Date of Service April 16, 2022 Admission HPI Per Admitting Provider This is a 61yo M with a PMH of recently diagnosed paroxysmal A Fib on Xarelto, HTN who presented for DC cardioversion with Dr. Kothari. Underwent cardioversion which was initially successful but approximately 5 minutes after the cardioversion he lapsed back into atrial fibrillation. Patient is being admitted for sotalol loading and repeat cardioversion. Echo from February 2022 with preserved EF 50-54%, no wall motion abnormalities. Patient is feeling well when examined in cardiac suite. Denies any lightheadedness, chest pain or palpitations. No fever, chills, congestion,shortness of breath, nausea, vomiting, abdominal pain, dysuria, diarrhea or constipation. Taking all medications as prescribed. Last took Xarelto last evening with dinner. Follows with Dr. Stafford for primary care. Admission Exam Per Admitting Provider General Appearance:WD/WN, vitals as above, NAD, sitting up in bed, pleasant, conversing easily Head: normocephalic, atraumatic Eyes:normal inspection, PERRL, conjunctivae normal, anicteric sclerae ENT: external ear and nose normal, oropharynx normal Neck: normal visual inspection, trachea midline, no thyromegaly Respiratory:normal respiratory effort, lungs clear to auscultation, no wheeze, rales, rhonchi. No accessory muscle use Cardiovascular: irregular rate & rhythm, no murmur, normal peripheral pulses, no BLE edema. Vessels: no JVD Chest: normal inspection of chest Abdomen/GI: normal bowel sounds, soft, nontender, no hepatosplenomegaly Extremities/Musculoskeletal: no cyanosis or clubbing, extremities motor strength 5/5 Neurologic: PERRL, EOMI, accommodation nl, no face palsy, no dysarthria, CN's II-XI intact bilaterally and moves all extremities Psychiatric:A+Ox3, euthymic affect Skin: no rashes, normal color, warm/dry Principal Diagnosis Paroxysmal A fib with RVR Discharge Exam General: Sitting comfortably in bed, not in distress, on room air HEENT: EOMI, JAE, MMM Chest: Clear breath sounds bilaterally, no wheezes or crackles CVS: Regular rate and rhythm, normal heart sounds, no murmur Abdomen: Soft, non tender, not distended, normal bowel sounds Neuro: Awake, alert, oriented, conversing well, non focal Extremities: No cyanosis, clubbing or edema Discharge Data Allergies Allergy/AdvReac Type Severity Reaction Status Date / Time No Known Allergies Allergy Verified 12/28/21 19:35 Consultations 04/14/22 09:37 Consult Hospitalist Stat 04/14/22 11:46 Consult Cardiology Routine Procedures Performed Operation Date: 04/14/22 07:45 Actual Procedures p Cardioversion - Nicholas Kothari DO Operation Date: 04/15/22 12:30 Actual Procedures p Cardioversion - Nicholas Kothari DO Ordered Studies Laboratory Results WBC 8.80 K/ul (4.8-10.8) 04/16/22 05:28 RBC 5.26 M/uL (4.63-6.08) 04/16/22 05:28 Hgb 16.0 g/dl (14.0-18.0) 04/16/22 05:28 Hct 47.5 % (40.1-51.0) 04/16/22 05:28 MCV 90.3 fL (80.0-100.0) 04/16/22 05:28 MCH 30.4 pg (25.0-34.0) 04/16/22 05:28 MCHC 33.7 g/dL (32.0-36.0) 04/16/22 05:28 RDW Std Deviation 40.0 fL (36.4-46.3) 04/16/22 05:28 RDW Coeff of Samira 12.1 % (11.5-14.5) 04/16/22 05:28 Plt Count 174 K/uL (130-400) 04/16/22 05:28 MPV 11.8 fL (9.4-12.4) 04/16/22 05:28 Sodium 138 mmol/L (136-145) 04/16/22 05:28 Potassium 4.1 mmol/L (3.5-5.1) 04/16/22 05:28 Chloride 103 mmol/L (98-107) 04/16/22 05:28 Carbon Dioxide 30 mmol/L (21-32) 04/16/22 05:28 Anion Gap 5 (3-11) 04/16/22 05:28 BUN 22 mg/dl (6-23) 04/16/22 05:28 Creatinine 1.01 mg/dl (0.6-1.4) 04/16/22 05:28 Est Cr Clr Drug Dosing 100.5 ml/min 04/16/22 05:28 Est GFR ( Amer) 93.9 ml/min 04/16/22 05:28 Est GFR (Non-Af Amer) 81.0 ml/min 04/16/22 05:28 BUN/Creatinine Ratio 21.8 (10-20) H 04/16/22 05:28 Glucose 95 mg/dl (70-99(Fasting)) 04/16/22 05:28 Calcium 8.9 mg/dl (8.5-10.1) 04/16/22 05:28 Magnesium 2.0 mg/dl (1.7-2.4) 04/16/22 05:28 Hospital Course (1) Atrial fibrillation with rapid ventricular response: This is a 61yo M with a PMH of recently diagnosed paroxysmal A Fib on Xarelto, HTN who underwent unsuccessful cardioversion on admission for atrial fibrillation and was admitted for Sotalol loading. Repeat cardioversion was done yesterday and was successful. Has been in sinus rhythm since. Tolerating sotalol so far without issues D3 and cleared by cardio for discharge. Continue xarelto. I spoke to Dr Woodson today. Toprol discontinued and will be continued on sotalol. He is anxious to go home. F/u with cardio as OP. (2) Hypertension: Continue amlodipine (3) Gastroesophageal reflux disease: Continue PPI Plan His nocturnal pulse oximetry was negative for desaturations. Total Time Total Time Spent Total Time Spent (In Minutes): 35 Discharge Plan Discharge Items Patient Disposition: Home - Self-Care Reason For Visit: Atrial Flutter, Paroxysmal Atrial Fibrillation Discharge Diagnosis: Paroxysmal atrial fibrillation with RVR Condition on Discharge: Good Activity: Resume your previous activity Non-emergency contact: Primary Care Provider and Court Liaison Call non-emergency contact if: you have any medication questions and your symptoms worsen Follow-up/Referrals: Villa Stafford [Primary Care Provider] - Diet: Heart Healthy Addtl Attending Provider Instructions: STOP TOPROL. Continue sotalol twice daily Continue xarelto Follow up with your family doctor and cardiology Pending Studies at Discharge: No Stand-Alone Forms: My [facility] Basic6, Smoking Cessation Medications and DC Order Prescriptions: New sotalol 80 mg Tablet 80 mg PO BID Qty: 60 0RF Continued ascorbic acid (vitamin C) 100 mg Tablet 100 mg PO DAILY Xarelto 20 mg Tablet 20 mg PO DAILY@1800 Rx Instructions: must administer with evening meal multivitamin [Men's Multi-Vitamin] Tablet 1 tab PO DAILY fluticasone propion-salmeterol [Advair Diskus] 250-50 mcg/dose blister with device 1 inh INHALATION DIRECTED Rx Instructions: ORDERED 12/28/21 HAS NOT STARTED YET cetirizine [Zyrtec] 10 mg Tablet 10 mg PO DAILY amlodipine 10 mg tablet 10 mg PO QAM omeprazole 20 mg capsule,delayed release(DR/EC) 20 mg PO BID albuterol sulfate 90 mcg/actuation HFA aerosol inhaler 2 puff INHALATION Q6H PRN (Reason: Shortness Of Breath) fluticasone propionate 50 mcg/actuation spray,suspension 2 spray INTRANASAL DAILY Mucinex 1,200 mg Tablet Extended Release 12hr 1,200 mg PO DAILY calcium lactate 100 mg calcium Tablet 100 mg PO DAILY Magnesium, Zinc, Calcium Tab 1 tab PO DAILY Discontinued metoprolol succinate 100 mg Tablet Extended Release 24 Hr 100 mg PO DAILY ibuprofen 800 mg tablet 800 mg PO TID PRN (Reason: Pain) Discharge Orders: Discharge Order (Routine); Ordered 04/16/22 Ordered By: Kevin Gamboa Admission Data Admit Date/Time: 04/14/22 09:48 Attending Provider: Kevin Gamboa Admit Provider: Kevin Gamboa Primary Care Provider: Villa Stafford Other Providers: Rosana Sanchez ; Nicholas Kothari
[2022-04-16] MEDS: RIVAROXABAN 20 MG TAB PO SCH (17:06)
--- NOTE | 2022-04-17 18:44 | Electrocardiogram Report ---
Test Reason : Blood Pressure : / mmHG Vent. Rate : 060 BPM Atrial Rate : 060 BPM P-R Int : 226 ms QRS Dur : 102 ms QT Int : 482 ms P-R-T Axes : 030 039 029 degrees QTc Int : 482 ms Sinus rhythm with 1st degree A-V block Prolonged QT Abnormal ECG When compared with ECG of 15-APR-2022 13:38, MS interval has increased Confirmed by Juancarlos Dial ([id number]) on 04/17/2022 6:44:30 PM Referred By: Itzel Duff Confirmed By:Juancarlos Dial
== END 2022-04-16 17:30 | disposition home or self-care (01) | DRG 310 ==
LOC: CC 06:49 → SUATTDRO 09:48 → INTOOBSV 09:48 → 2S 09:48